=== PATIENT | male | born 1965 | race Caucasian/White ===

== ENCOUNTER 2020-04-26 15:41 | Inpatient (IN) | payer OTHER ==
[2020-04-26] MEDS ORDERED: HYDROmorphone 0.5 MG/0.5 ML Syringe IVPUSH ONE ×3 (15:57→18:08)
[2020-04-26] MEDS ORDERED: Metoclopramide 10 MG/2 ML SDV IV ONE (15:57)
[2020-04-26] MEDS ORDERED: Sodium Chloride 0.9% 10 ML Syringe FLUSH PRN (15:57)
--- NOTE | 2020-04-26 16:04 | EDM.PDOC ---
ED HPI GENERAL MEDICAL PROBLEM - General Chief Complaint: Respiratory Problem Stated Complaint: FELL DOWN STAIRS, TROUBLE BREATHING Time Seen by Provider: 04/26/20 15:58 Source of Information: Reports: Patient - History of Present Illness INITIAL COMMENTS - FREE TEXT/NARRATIVE: Yang is a 54 year old male whom presents with for evaluation of left side chest pain which started this afternoon while on the [address] to [facility]. Yang fell down a flight a stairs last night striking his head with possible LOC with generalized body aches and pain. Yang was evaluated by local EMS and no transport for evaluation with recommended. Yang had some discomfort in upper back, chest after fall when going to bed this am and again this am but tolerable. Yang had abrupt onset of worsening symptoms about 2 hours before presenting to ER. Yang has pain in left anterior chest which radiated to his back and pain with taking a deep breath which occurred abruptly during care ride. Yang had no history of similar symptoms in the past. Past Medical History (per ): No HTN, Cholesterol or CAD concerns. Mother and Father: Alive in their 90s, no MD or CAD. Risk factors: Obesity and alcohol use. Left Upper Chest Pain Score (Numeric/FACES): 8 - Related Data Allergies Allergy/AdvReac Type Severity Reaction Status Date / Time No Known Allergies Allergy Verified 04/26/20 15:52 Home Meds: Home Meds NK [No Known Home Meds] 04/26/20 [History] Past Medical History - Past Health History Medical/Surgical History: Denies Medical/Surgical History - Infectious Disease History Infectious Disease History: Reports: Chicken Pox - Past Surgical History Head Surgeries/Procedures: Reports: None ED ROS GENERAL - Review of Systems Review Of Systems: Comprehensive ROS is negative, except as noted in HPI. (from , limited questioning of patient due to severity of pain.) ED EXAM, GENERAL - Physical Exam Exam: See Below Exam Limited By: No Limitations General Appearance: Alert, WD/WN, Severe Distress (left chest pain radiates into back) Eye Exam: Bilateral Eye: EOMI, Normal Inspection Ears: Normal External Exam, Hearing Grossly Normal Nose: Normal Inspection, Normal Mucosa Head: Normocephalic. No: Atraumatic (abrasion left superior vertex ) Neck: Normal Inspection Respiratory/Chest: Respiratory Distress, Splinting (respirations). No: Normal Breath Sounds (poor air movement ) Cardiovascular: Normal Peripheral Pulses, Regular Rate, Rhythm, No Murmur, Other (Tachycardia and elevated BP noted) (Male) Exam: Deferred Rectal (Males) Exam: Deferred Extremities: Normal Inspection, Normal Range of Motion, Non-Tender Neurological: Alert, Oriented, CN II-XII Intact, Normal Cognition, No Motor/Sensory Deficits Psychiatric: Normal Mood, Anxious Skin Exam: Warm, Dry, Intact, Normal Color, No Rash ED RESPIRATORY PROCEDURES - Additional/Other Procedure(s) Other (Free Text) Procedure(s): POINT OF CARE ULTRASOUND - PULMONARY EXAM Indication: Abnormal Breath Sounds/Trauma Findings: Exam while patient sitting upright: Right Lung field: Positive Slide Side, A Line and B Lines observed. Left Upper Lung Garcia: Difficult to visualize Slide sign, A Line and B Lines observed. A bedside ultrasound was performed, and interpreted by myself with Dr Valadez. Image obtained and reviewed with the patient at bedside and saved, when possible. Patient tolerated the procedure well. EKG INTERPRETATION EKG Date: 04/26/20 Time: 16:25 Rhythm: NSR Rate (Beats/Min): 101 [place]: LAD-Left [place] Deviation (LVH (likely undiagnosed long standing HTN).) P-Wave: Present QRS: Normal ST-T: Normal (q wave in linferior LEADs II, III and aVF, old MD without history) QT: Normal Comparison: NA - No Prior EKG Course - Vital Signs Last Recorded V/S: Last Vital Signs Temp 36.9 C 04/26/20 15:47 Pulse 92 04/26/20 18:15 Resp 22 H 04/26/20 18:15 BP 154/86 H 04/26/20 18:15 Pulse Ox 94 L 04/26/20 18:15 - Orders/Labs/Meds Orders: Active Orders 24 hr Category Date Time Status Cardiac Monitoring [RC] .As Directed Care 04/26/20 15:57 Active EKG Documentation Completion [RC] ASDIRECTED Care 04/26/20 16:10 Active Peripheral IV Care [RC] . DIRECTED Care 04/26/20 15:57 Active CXR [Chest 2V] [CR] Stat Exams 04/26/20 16:05 Taken Iopamidol [Isovue-370 (76%)] Med 04/26/20 16:45 Active 100 ml IV . DIRECTED Sodium Chloride 0.9% [Normal Saline] 100 ml Med 04/26/20 16:45 Active IV ASDIRECTED Sodium Chloride 0.9% [Saline Flush] Med 04/26/20 15:57 Active 10 ml FLUSH ASDIRECTED PRN Peripheral IV Insertion Adult [OM.PC] Urgent Oth 04/26/20 15:57 Ordered EKG 12 Lead [EK] Urgent Ther 04/26/20 16:09 Ordered Medication Orders Benzocaine/Menthol (Cepacol Sore Throat) 1 lozenge MUCMEM Q1H PRN PRN Reason: Sore Throat Bisacodyl (Dulcolax) 5 mg PO DAILY PRN PRN Reason: Constipation Diphenhydramine HCl (Benadryl) 50 mg IVPUSH Q4H PRN PRN Reason: Itching Docusate Sodium (Colace) 100 mg PO BID PRN PRN Reason: Constipation Fentanyl (Sublimaze) 40 mcg IVPUSH Q1H PRN PRN Reason: Pain (severe 7-10) Fentanyl (Sublimaze) 25 mcg IVPUSH Q1H PRN PRN Reason: Pain (moderate 4-6) Hydroxyzine HCl (Vistaril) 50 mg IM Q4H PRN PRN Reason: Nausea Sodium Chloride (Normal Saline) 100 mls @ 3 mls/sec IV ASDIRECTED [facility] Last Admin: 04/26/20 17:49 Dose: 3 mls/sec Documented by: FIEMSAR Cefazolin Sodium 2 gm/ Sodium (Chloride) 100 mls @ 100 mls/hr IV Q8H [facility] Stop: 04/27/20 02:59 Last Admin: 04/26/20 18:21 Dose: 100 mls/hr Documented by: PREILOR Sodium Chloride (Normal Saline) 1,000 mls @ 100 mls/hr IV ASDIRECTED [facility] Iopamidol (Isovue-370 (76%)) 100 ml IV . DIRECTED [facility] Last Admin: 04/26/20 17:49 Dose: 100 ml Documented by: FIEMSAR Oxycodone/Acetaminophen (Percocet 325-10 Mg) 2 tab PO Q4H PRN PRN Reason: Pain (moderate 4-6) Senna/Docusate Sodium (Senna Plus) 1 tab PO BID PRN PRN Reason: Constipation Sodium Chloride (Saline Flush) 10 ml FLUSH ASDIRECTED PRN PRN Reason: Keep Vein Open Last Admin: 04/26/20 16:14 Dose: 10 ml Documented by: PREILOR Labs: Laboratory Tests 04/26/20 04/26/20 04/26/20 Range/Units 16:22 16:22 16:22 WBC 14.7 H (4.5-11.0) K/uL RBC 5.17 (4.30-5.90) M/uL Hgb 15.2 H (12.0-15.0) g/dL Hct 45.2 (40.0-54.0) % MCV 87 (80-98) fL MCH 29 (27-31) pg MCHC 34 (32-36) % Plt Count 331 (150-400) K/uL Neut % (Auto) 80 H (36-66) % Lymph % (Auto) 11 L (24-44) % [place] % (Auto) 9 H (2-6) % Eos % (Auto) 0 L (2-4) % Baso % (Auto) 0 (0-1) % D-Dimer, Quantitative 597 H (0.0-400.0) ng/mL Sodium 135 L (140-148) mmol/L Potassium 3.8 (3.6-5.2) mmol/L Chloride 100 (100-108) mmol/L Carbon Dioxide 23 (21-32) mmol/L Anion Gap 15.8 H (5.0-14.0) mmol/L BUN 17 (7-18) mg/dL Creatinine 1.0 (0.8-1.3) mg/dL Est Cr Clr Drug Dosing 78.03 mL/min Estimated GFR (MDRD) > 60 (>60) Glucose 143 H (74-106) mg/dL Calcium 8.8 (8.5-10.1) mg/dL Total Bilirubin 0.8 (0.2-1.0) mg/dL AST 33 (15-37) U/L ALT 36 (12-78) U/L Alkaline Phosphatase 90 (46-116) U/L Troponin I < 0.017 (0.000-0.056) ng/mL Total Protein 7.8 (6.4-8.2) g/dL Albumin 4.2 (3.4-5.0) g/dL Globulin 3.6 H (2.3-3.5) g/dL Albumin/Globulin Ratio 1.2 (1.2-2.2) Lipase (73-393) U/L 04/26/20 Range/Units 16:22 WBC (4.5-11.0) K/uL RBC (4.30-5.90) M/uL Hgb (12.0-15.0) g/dL Hct (40.0-54.0) % MCV (80-98) fL MCH (27-31) pg MCHC (32-36) % Plt Count (150-400) K/uL Neut % (Auto) (36-66) % Lymph % (Auto) (24-44) % [place] % (Auto) (2-6) % Eos % (Auto) (2-4) % Baso % (Auto) (0-1) % D-Dimer, Quantitative (0.0-400.0) ng/mL Sodium (140-148) mmol/L Potassium (3.6-5.2) mmol/L Chloride (100-108) mmol/L Carbon Dioxide (21-32) mmol/L Anion Gap (5.0-14.0) mmol/L BUN (7-18) mg/dL Creatinine (0.8-1.3) mg/dL Est Cr Clr Drug Dosing mL/min Estimated GFR (MDRD) (>60) Glucose (74-106) mg/dL Calcium (8.5-10.1) mg/dL Total Bilirubin (0.2-1.0) mg/dL AST (15-37) U/L ALT (12-78) U/L Alkaline Phosphatase (46-116) U/L Troponin I (0.000-0.056) ng/mL Total Protein (6.4-8.2) g/dL Albumin (3.4-5.0) g/dL Globulin (2.3-3.5) g/dL Albumin/Globulin Ratio (1.2-2.2) Lipase 81 (73-393) U/L Meds: Medications Generic Name Dose Route Start Last Admin Trade Name Freq PRN Reason Stop Dose Admin Benzocaine/Menthol 1 lozenge 04/26/20 17:41 Cepacol Sore Throat MUCMEM Q1H PRN Sore Throat Bisacodyl 5 mg 04/26/20 17:41 Dulcolax PO DAILY PRN Constipation Diphenhydramine HCl 50 mg 04/26/20 17:41 Benadryl IVPUSH Q4H PRN Itching Docusate Sodium 100 mg 04/26/20 17:41 Colace PO BID PRN Constipation Fentanyl 40 mcg 04/26/20 17:41 Sublimaze IVPUSH Q1H PRN Pain (severe 7-10) Fentanyl 25 mcg 04/26/20 17:41 Sublimaze IVPUSH Q1H PRN Pain (moderate 4-6) Hydroxyzine HCl 50 mg 04/26/20 17:41 Vistaril IM Q4H PRN Nausea Sodium Chloride 100 mls @ 3 mls/sec 04/26/20 16:45 04/26/20 17:49 Normal Saline IV 3 mls/sec ASDIRECTED MIRTHA Administration Cefazolin Sodium 2 gm/ Sodium 100 mls @ 100 mls/hr 04/26/20 18:00 04/26/20 18:21 Chloride IV 04/27/20 02:59 100 mls/hr Q8H MIRTHA Administration Sodium Chloride 1,000 mls @ 100 mls/hr 04/26/20 18:30 Normal Saline IV ASDIRECTED MIRTHA Iopamidol 100 ml 04/26/20 16:45 04/26/20 17:49 Isovue-370 (76%) IV 100 ml . DIRECTED MIRTHA Administration Oxycodone/Acetaminophen 2 tab 04/26/20 17:41 Percocet 325-10 Mg PO Q4H PRN Pain (moderate 4-6) Senna/Docusate Sodium 1 tab 04/26/20 17:41 Senna Plus PO BID PRN Constipation Sodium Chloride 10 ml 04/26/20 15:57 04/26/20 16:14 Saline Flush FLUSH 10 ml ASDIRECTED PRN Administration Keep Vein Open Discontinued Medications Generic Name Dose Route Start Last Admin Trade Name Freq PRN Reason Stop Dose Admin Cefazolin Sodium Confirm 04/26/20 17:53 Ancef Administered 04/26/20 17:54 Dose 2 gm .ROUTE .STK-MED ONE Hydromorphone HCl 0.5 mg 04/26/20 15:57 04/26/20 16:14 Dilaudid IVPUSH 04/26/20 15:58 0.5 mg ONETIME ONE Administration Hydromorphone HCl 0.5 mg 04/26/20 16:56 04/26/20 18:11 Dilaudid IVPUSH 04/26/20 16:57 0.5 mg ONETIME ONE Administration Hydromorphone HCl 0.5 mg 04/26/20 18:08 04/26/20 18:13 Dilaudid IVPUSH 04/26/20 18:09 0.5 mg ONETIME ONE Administration Lidocaine/Epinephrine 10 ml 04/26/20 17:39 04/26/20 18:14 Xylocaine 1% With Epinephrine 1:100,000 SUBCUT 04/26/20 17:40 50 ml ONETIME ONE Administration Lidocaine/Epinephrine Confirm 04/26/20 17:40 Xylocaine 1% With Epinephrine 1:100,000 Administered 04/26/20 17:41 Dose 50 ml .ROUTE .STK-MED ONE Metoclopramide HCl 5 mg 04/26/20 15:57 04/26/20 16:11 Reglan IV 04/26/20 15:58 5 mg ONETIME ONE Administration Morphine Sulfate 4 mg 04/26/20 17:39 04/26/20 18:12 Morphine IVPUSH 04/26/20 17:40 4 mg ONETIME ONE Administration Morphine Sulfate Confirm 04/26/20 17:40 Morphine Administered 04/26/20 17:41 Dose 4 mg .ROUTE .STK-MED ONE Sodium Chloride 10 ml 04/26/20 16:37 04/26/20 17:49 Saline Flush FLUSH 04/26/20 16:38 10 ml ONETIME ONE Administration - Radiology Interpretation Free Text/Narrative:: 16:25 CXR PA/LAT: Left moderate pneumothorax identified with obvious displaced rib fracture (fall greater than 15 hrs ago). Reviewed imaging with Dr Valadez and updated patient regarding CXR findings. Dr Valadez recommended CT Chest for further evaluation and surgical planning. I opted for w/contrast due to trauma. Patient was warned about potential tension pneumothorax if symptoms worsen which will necessitate needle decompression and chest tube (pig tail or traditional). Formal Radiology report available at 18:15 faxed results: 1. Small left pneumothorax and hemothorax. 2. Left 3rd through 7th rib fractures. 3. Left chest wall subcutaneous emphysema. CT Results Date: 04/26/20 CT Results Time: 17:15 (Reviewed with Dr Valadez: Left Chest: Subq air, Hemothorax and pneumothorax noted with 3 lateral rib fractures 5-7 ) - Re-Assessments/Exams Free Text/Narrative Re-Assessment/Exam: CXR reviewed with Dr Valadez and update patient regarding findings concerning for pneumothroax with CT Chest IV contrast planned for further evaluation. Paged removable prosthodontist General Surgeon for evaluation of traumatic pneumothorax from fall at 1 am, while at a wedding in [place], 5 hours sound. General Surgeon returned call and will evaluate patient ER with chest tube planned with likely hospitalization tonight. Bill's blood pressure and pulse are much improved after Dilaudid 0.5mg IV given. 04/26/20 16:40 CT Chest Angio reviewed: Left side, pneumothorax, hemothorax with subq air and rib fractures 5-7 lateral. Update patient and regarding CT findings. 04/26/20 17:23 Surgical Elastic Knitter Hand Frame General Surgeon in route for evaluation, possible chest tube and admission. 04/26/20 17:35 Departure - Departure Time of Disposition: 18:30 Disposition: [facility] Clinical Impression: Pneumothorax, acute, Closed chest injury, Ribs, multiple fractures, Elevated blood pressure reading, Hemothorax on left - Discharge Information Sepsis Event Note (ED) - Evaluation Sepsis Screening Result: No Definite Risk - Focused Exam Vital Signs: Vital Signs Temp Pulse Resp BP Pulse Ox 04/26/20 17:23 94 18 126/78 95 04/26/20 17:10 96 24 H 129/78 95 04/26/20 16:26 104 H 28 H 137/94 H 91 L 04/26/20 15:47 36.9 C 115 H 20 186/106 H 93 L - My Orders Last 24 Hours: My Active Orders 04/26/20 15:57 Cardiac Monitoring [RC] .As Directed Peripheral IV Care [RC] . DIRECTED Sodium Chloride 0.9% [Saline Flush] 10 ml FLUSH ASDIRECTED PRN Peripheral IV Insertion Adult [OM.PC] Urgent 04/26/20 16:05 CXR [Chest 2V] [CR] Stat 04/26/20 16:09 EKG 12 Lead [EK] Urgent 04/26/20 16:10 EKG Documentation Completion [RC] ASDIRECTED 04/26/20 16:45 Iopamidol [Isovue-370 (76%)] 100 ml IV . DIRECTED Sodium Chloride 0.9% [Normal Saline] 100 ml IV ASDIRECTED - Assessment/Plan Last 24 Hours: My Active Orders 04/26/20 15:57 Cardiac Monitoring [RC] .As Directed Peripheral IV Care [RC] . DIRECTED Sodium Chloride 0.9% [Saline Flush] 10 ml FLUSH ASDIRECTED PRN Peripheral IV Insertion Adult [OM.PC] Urgent 04/26/20 16:05 CXR [Chest 2V] [CR] Stat 04/26/20 16:09 EKG 12 Lead [EK] Urgent 04/26/20 16:10 EKG Documentation Completion [RC] ASDIRECTED 04/26/20 16:45 Iopamidol [Isovue-370 (76%)] 100 ml IV . DIRECTED Sodium Chloride 0.9% [Normal Saline] 100 ml IV ASDIRECTED
[2020-04-26] MEDS ORDERED: Sodium Chloride 0.9% 10 ML Syringe FLUSH ONE (16:37)
[2020-04-26] MEDS ORDERED: Sodium Chloride 0.9% 100 ML IV SCH (16:45)
[2020-04-26] MEDS ORDERED: Iopamidol 755 Mg/ML 100 ML Bottle IV SCH (16:45)
[2020-04-26] MEDS ORDERED: Lidocaine 1% with EPINEPHrine 1:100,000 50 ML MDV SUBCUT ONE (17:39)
[2020-04-26] MEDS ORDERED: Morphine 4 MG/ML Syringe IVPUSH ONE (17:39)
[2020-04-26] MEDS ORDERED: Lidocaine 1% with EPINEPHrine 1:100,000 50 ML MDV ONE (17:40)
[2020-04-26] MEDS ORDERED: Morphine 4 MG/ML Syringe ONE (17:40)
[2020-04-26] MEDS ORDERED: hydrOXYzine HCL 100 MG/2 ML SDV IM PRN (17:41)
[2020-04-26] MEDS ORDERED: diphenhydrAMINE 50 MG/ML SDV IVPUSH PRN (17:41)
[2020-04-26] MEDS ORDERED: Bisacodyl 5 MG Tab PO PRN (17:41)
[2020-04-26] MEDS ORDERED: Benzocaine/Cetylpyridinium/Menthol Lozenge MUCMEM PRN (17:41)
[2020-04-26] MEDS ORDERED: Acetaminophen/oxyCODONE 325-10 MG Tab PO PRN (17:41)
[2020-04-26] MEDS ORDERED: fentaNYL 100 MCG/2 ML SDV IVPUSH PRN ×2 (17:41)
[2020-04-26] MEDS ORDERED: ceFAZolin 1 GM Vial ONE (17:53)
--- NOTE | 2020-04-26 17:59 | CRLCT ---
INDICATION: Trauma to the chest 15 hours ago. Evaluate for hemothorax or pneumothorax. COMPARISON: 04/26/2020 chest x-ray. TECHNIQUE: CT angiography of the chest with IV contrast. 100 cc Isovue-370. FINDINGS: Thoracic aorta is normal in caliber with no evidence of dissection or aneurysmal dilatation. No evidence of central PE. Heart size is normal. No pericardial effusion. Coronary artery calcifications. No enlarged lymph nodes identified in the chest. Hypoattenuating right thyroid nodule measures 7 mm in diameter (series 5, image 6). Circumscribed hypoattenuating hepatic foci are likely cysts. Imaged upper abdomen is otherwise unremarkable. Trace left pneumothorax. Small left pleural effusion measuring 35 Hounsfield units, likely blood products/hemothorax. Left chest wall subcutaneous emphysema. Left 3rd through 7th minimally displaced rib fractures. Mild right basilar atelectasis. Central airways are patent. IMPRESSION: 1. Small left pneumothorax and hemothorax. 2. Left 3rd through 7th rib fractures. 3. Left chest wall subcutaneous emphysema. Please note that all CT scans at this facility use dose modulation, iterative reconstruction, and/or weight-based dosing when appropriate to reduce radiation dose to as low as reasonably achievable. Dictated by Wilfredo Aguero MD @ Apr 26 2020 5:44PM Signed by Dr. Wilfredo Aguero @ Apr 26 2020 5:57PM
[2020-04-26] MEDS: ceFAZolin 2 GM in Sodium Chloride 0.9% 100 ML IV SCH (18:21)
[2020-04-26] MEDS ORDERED: Sodium Chloride 0.9% 1,000 ML IV SCH (18:30)
[2020-04-26] MEDS: Cyclobenzaprine 10 MG Tab PO SCH (21:52)
[2020-04-27] MEDS: ceFAZolin 2 GM in Sodium Chloride 0.9% 100 ML IV SCH (02:23)
[2020-04-27] MEDS: Cyclobenzaprine 10 MG Tab PO SCH ×3 (08:43→20:25)
--- NOTE | 2020-04-27 09:53 | CR ---
CHEST: 2 view CLINICAL HISTORY:Left chest pain, fall COMPARISON:None FINDINGS: There is some subcutaneous emphysema along the left the lateral rib cage. There are multiple rib fractures. There is some lucency over the apex of the lung suggesting pneumothorax and fluid.. Heart is enlarged pulmonary vascular is normal. There are atherosclerotic changes in the aorta. Impression: Multiple left rib fractures Septation of this edema and probable hemopneumothorax. CHEST: Portable 04/26/2020 at 6:20 PM CLINICAL HISTORY:Chest tube placement COMPARISON:Earlier same day FINDINGS: Left chest tube has been placed. There is no significant pleural fluid or pneumothorax. There is some patchy airspace disease at the left lung base likely atelectasis. There are multiple left rib fractures. Impression: Placement left chest tube Reduction in hemopneumothorax
--- NOTE | 2020-04-27 11:47 | OR ---
DATE OF PROCEDURE: 04/26/2020 SURGEON: Ramirez Quiroga MD PROCEDURE: Chest tube placement, left chest. PREOPERATIVE DIAGNOSIS: Hemopneumothorax. POSTOPERATIVE DIAGNOSIS: Hemopneumothorax. FINDINGS: Approximately 200 mL of freshly clotted blood. Air noted at entry. COMPLICATIONS: None. TOWBOAT PILOT: None. RISKS: Risks, benefits, alternatives, limitations including but not limited to infection, bleeding, recurrent pneumothorax, chronic pain, injury to chest structures, such as blood loss of lung, and other risks not listed here. The patient understands these risks and wishes to proceed. PROCEDURE IN DETAIL: The patient was placed in supine position. The left chest was readily identified. and this was prepped and draped. In the mid axillary line, slightly above the nipple, the area was prepped and draped. The area was palpated between the ribs, this was anesthetized. The superficial tissue to the ribs was anesthetized with lidocaine mixed with epinephrine. A 15 blade was used to make an incision, a finger was then used to dilate down and the ribs were spread using a Pean. Finger sweep maneuver was performed. The chest tube was then inserted. This was hooked to suction. Tidaling was noted, approximately 200 mL of straw-colored blood was noted. The chest tube was then secured into place with sutures x2. The remainder of the tissues were closed. Vaseline gauze and appropriate dressings were placed about this. The patient tolerated the procedure well. Ramirez Quiroga MD /[id number]
[2020-04-28] MEDS: Docusate Sodium 100 MG Cap PO PRN (08:40)
[2020-04-28] MEDS: Cyclobenzaprine 10 MG Tab PO SCH ×3 (08:41→20:01)
--- NOTE | 2020-04-28 10:42 | PN ---
DATE OF SERVICE: 04/28/2020 SUBJECTIVE: Patient is doing well. Pain is controlled. No nausea, vomiting, shortness of breath, or chest pain. OBJECTIVE: VITAL SIGNS: Stable. Afebrile. CARDIOVASCULAR: Regular rhythm and rate. RESPIRATORY: Poor inspiratory effort bilaterally. ASSESSMENT: Hemopneumothorax. PLAN: Still over 200 mL of blood coming through the tube. Will evaluate in a.m. again for possible water seal and chest tube removal. Ramirez Quiroga MD /[id number]
--- NOTE | 2020-04-29 09:04 | CR ---
CHEST: Portable 04/29/2020 at 5:30 AM CLINICAL HISTORY:Chest tube COMPARISON:Prior day FINDINGS: Left chest tube remains in place. There is no significant pneumothorax. Subcutaneous emphysema is resolving. There are multiple left fractures and some streaky atelectasis. Impression: Left chest tube remains in place No significant pneumothorax
[2020-04-29] MEDS: Cyclobenzaprine 10 MG Tab PO SCH ×3 (09:06→20:05)
--- NOTE | 2020-04-29 13:31 | PN ---
DATE OF SERVICE: 04/29/2020 SUBJECTIVE: The patient is doing better today. The continued air leak that was noted yesterday has now stopped. Chest tube output is now down to 120 mL of blood. OBJECTIVE: VITAL SIGNS: Stable. CARDIOVASCULAR: Regular rhythm and rate. RESPIRATORY: Lungs clear to auscultation bilaterally, poor inspiratory effort. ASSESSMENT: Status post hemopneumothorax. PLAN: The patient will undergo water seal testing tomorrow morning. Most likely, he will be discharged in the morning if there is no recurrent pneumothorax. Ramirez Quiroga MD /[id number]
[2020-04-29] MEDS: Docusate Sodium 100 MG Cap PO PRN (17:15)
--- NOTE | 2020-04-30 07:55 | CRLCR ---
INDICATION: Chest pain. Fall. Chest tube. TECHNIQUE: AP portable upright chest. COMPARISON: Portable chest x-ray April 29, 2020. Correlation is made with a CT April 26, 2020. FINDINGS: Shallow inspiration. Single left-sided chest tube unchanged in position. Atelectasis left lower lung laterally with some pleural thickening or trace pleural fluid. Nondisplaced left-sided rib fractures. Clear right lung. IMPRESSION: Single left-sided chest tube in good position. No pneumothorax visualized. Dictated by Maksim Bonner MD @ Apr 30 2020 7:52AM Signed by Dr. Maksim Bonner @ Apr 30 2020 7:54AM
--- NOTE | 2020-04-30 09:47 | CR ---
CHEST: 2 view CLINICAL HISTORY:Left chest tube removal COMPARISON:Earlier 04/30/2020 FINDINGS: Left chest tube is been removed. There is minimal pneumothorax. There is some pleural parenchymal scarring and some streaky atelectasis. Patient has multiple rib fractures. Impression: Left chest tube removed Minimal residual pneumothorax unchanged from prior
--- NOTE | 2020-04-30 09:49 | PN ---
DATE OF SERVICE: 04/30/2020 SUBJECTIVE: The patient is doing better today. Pain is well controlled. Chest tube output is minimal. No pneumothorax. OBJECTIVE: VITAL SIGNS: Stable. He is afebrile per nursing report. CARDIOVASCULAR: Regular rhythm and rate. RESPIRATORY: Poor inspiratory effort bilaterally. Chest tube intact. ASSESSMENT: Status post hemopneumothorax. PLAN: We will remove the chest tube today and perform a postprocedure x-ray. Ramirez Quiroga MD /[id number]
--- NOTE | 2020-04-30 11:25 | OR ---
DATE OF PROCEDURE: 04/30/2020 SURGEON: Ramirez Quiroga MD PROCEDURE: Removal of chest tube, left chest. COMPLICATIONS: None. PRODUCT DESIGN SPECIALIST: None. RISKS: Risks, benefits, alternatives, and limitations including, but not limited to, infection, bleeding, and requirement for replacement of tube was explained to the patient, who wished to proceed. PROCEDURE IN DETAIL: The patient was placed in supine position. The stitches were removed, holding the tube into place. A Vaseline-impregnated gauze dressing was placed with 4x4 and foam tape over the tube and this tube was removed in one fashion. No evidence of air leak, shortness of breath, or abnormalities noted after removal. The patient tolerated the procedure well. Ramirez Quiroga MD /[id number]
--- NOTE | 2020-04-30 13:07 | DISCH ---
DISCHARGE DIAGNOSIS: Status post chest tube, left side, due to hemopneumothorax. SUMMARY OF HOSPITAL COURSE: A 54-year-old male who had a traumatic hemopneumothorax secondary to fall. He did well, and prior to discharge, he had no air leaks for greater than 24 hours. He had no problems breathing. The chest x-ray did show a very small residual pneumothorax, which appears to be stable. Therefore, he will repeat a chest x-ray in the morning. ACTIVITY: As tolerated, except no heavy or strenuous activity. DISCHARGE MEDICATIONS: Please see MAR, but no additional medications.
== END 2020-04-30 10:25 | disposition home or self-care (01) | DRG 201 ==
LOC: JP.ED 15:41 → UNDOADMIN 17:41 → JP.ICU 17:41 → JP.MS 17:41
PROVIDERS: ADMIT Surgery; ATTEND Surgery
PROC: 0W9B30Z Drainage of Left Pleural Cavity with Drainage Device, Percutaneous Approach (ICD-10-PCS; principal; 2020-04-26)
PROC: 0WPBX0Z Removal of Drainage Device from Left Pleural Cavity, External Approach (ICD-10-PCS; 2020-04-30)
DX: S27.2XXA Traumatic hemopneumothorax, initial encounter (principal); W19.XXXA Unspecified fall, initial encounter
CPT/HCPCS: 32551; 36415; 71045; 71045-26; 71046; 71046-26; 71275; 80048; 80053; 83690; 84484; 85025; 85027; 85379; 93005; 93010; 96365; 96375; 96376; 99285; 99285-25; A9270-GY; C1751; J0690; J1170; J2270; J2765; J3010; J7030; J7050; Q9967